=== PATIENT | female | born 1950 | race Two or more races ===

== ENCOUNTER 2019-12-15 12:04 | Outpatient (CLI) | payer SELFPAY ==
[2019-12-15] MEDS ORDERED: LIDOCAINE SOLN 4% 50 ML BOTTLE ONE (12:38)
== END 2019-12-15 23:59 | disposition home or self-care (01) ==
LOC: WOU 12:04
PROVIDERS: ATTEND Surgery
DX: T81.31XA Disruption of external operation (surgical) wound, not elsewhere classified, initial encounter (principal); Z96.641 Presence of right artificial hip joint; I10 Essential (primary) hypertension; Z90.710 Acquired absence of both cervix and uterus; R73.03 Prediabetes; Z79.84 Long term (current) use of oral hypoglycemic drugs
CPT/HCPCS: 11043

== ENCOUNTER 2019-12-22 11:00 | Outpatient (CLI) | payer SELFPAY | END 2019-12-22 23:59 | disposition home or self-care (01) | LOC: WOU 11:00 | PROVIDERS: ATTEND Surgery | DX: T81.31XA Disruption of external operation (surgical) wound, not elsewhere classified, initial encounter (principal); I10 Essential (primary) hypertension; Z96.641 Presence of right artificial hip joint; Z79.84 Long term (current) use of oral hypoglycemic drugs | CPT/HCPCS: 11043 ==

== ENCOUNTER 2019-12-29 11:52 | Outpatient (CLI) | payer SELFPAY | END 2019-12-29 23:59 | disposition home or self-care (01) | LOC: WOU 11:52 | PROVIDERS: ATTEND Surgery | DX: T81.31XA Disruption of external operation (surgical) wound, not elsewhere classified, initial encounter (principal); I10 Essential (primary) hypertension; Z96.641 Presence of right artificial hip joint; R73.03 Prediabetes; Z79.84 Long term (current) use of oral hypoglycemic drugs | CPT/HCPCS: 11043 ==

== ENCOUNTER 2020-01-05 11:17 | Outpatient (CLI) | payer OTHER | END 2020-01-05 23:59 | disposition home or self-care (01) | LOC: WOU 11:17 | PROVIDERS: ATTEND Surgery | DX: T81.31XA Disruption of external operation (surgical) wound, not elsewhere classified, initial encounter (principal); Z96.641 Presence of right artificial hip joint; E78.5 Hyperlipidemia, unspecified; I10 Essential (primary) hypertension; R73.03 Prediabetes; Z79.84 Long term (current) use of oral hypoglycemic drugs | CPT/HCPCS: 11043 ==

== ENCOUNTER 2020-01-12 11:30 | Outpatient (CLI) | payer OTHER ==
[2020-01-12] MEDS ORDERED: LIDOCAINE SOLN 4% 50 ML BOTTLE ONE (11:42)
== END 2020-01-12 23:59 | disposition home or self-care (01) ==
LOC: WOU 11:30
PROVIDERS: ATTEND Surgery
DX: T81.31XA Disruption of external operation (surgical) wound, not elsewhere classified, initial encounter (principal); Z96.641 Presence of right artificial hip joint; I10 Essential (primary) hypertension; R73.03 Prediabetes; Z79.84 Long term (current) use of oral hypoglycemic drugs
CPT/HCPCS: 11043

== ENCOUNTER 2020-01-19 11:25 | Outpatient (CLI) | payer OTHER | END 2020-01-19 23:59 | disposition home or self-care (01) | LOC: WOU 11:25 | PROVIDERS: ATTEND Surgery | DX: T81.31XA Disruption of external operation (surgical) wound, not elsewhere classified, initial encounter (principal); Z96.641 Presence of right artificial hip joint; R73.03 Prediabetes; Z79.84 Long term (current) use of oral hypoglycemic drugs; I10 Essential (primary) hypertension | CPT/HCPCS: 11043; A6407 ==

== ENCOUNTER 2020-01-26 11:20 | Outpatient (CLI) | payer OTHER ==
[2020-01-26] MEDS ORDERED: LIDOCAINE 2% JEL 5 ML TUBE ONE (11:59)
== END 2020-01-26 23:59 | disposition home or self-care (01) ==
LOC: WOU 11:20
PROVIDERS: ATTEND Surgery
DX: T81.31XA Disruption of external operation (surgical) wound, not elsewhere classified, initial encounter (principal); Z96.641 Presence of right artificial hip joint; I10 Essential (primary) hypertension; R73.03 Prediabetes; Z79.84 Long term (current) use of oral hypoglycemic drugs
CPT/HCPCS: 11043; A6407

== ENCOUNTER 2020-02-02 11:00 | Outpatient (CLI) | payer OTHER | END 2020-02-02 23:59 | disposition home or self-care (01) | LOC: WOU 11:00 | PROVIDERS: ATTEND Surgery | DX: T81.31XA Disruption of external operation (surgical) wound, not elsewhere classified, initial encounter (principal); R73.03 Prediabetes; Z79.84 Long term (current) use of oral hypoglycemic drugs; Z96.641 Presence of right artificial hip joint | CPT/HCPCS: 11043; A6407 ==

== ENCOUNTER 2020-02-09 11:00 | Outpatient (CLI) | payer OTHER ==
[2020-02-09] MEDS ORDERED: LIDOCAINE SOLN 4% 50 ML BOTTLE ONE (11:11)
== END 2020-02-09 23:59 | disposition home or self-care (01) ==
LOC: WOU 11:00
PROVIDERS: ATTEND Surgery
DX: T81.31XA Disruption of external operation (surgical) wound, not elsewhere classified, initial encounter (principal); Z96.641 Presence of right artificial hip joint; I10 Essential (primary) hypertension; R73.03 Prediabetes; Z79.84 Long term (current) use of oral hypoglycemic drugs
CPT/HCPCS: 11042; A6407; 11043

== ENCOUNTER 2020-03-01 11:00 | Outpatient (CLI) | payer OTHER | END 2020-03-01 23:59 | disposition home or self-care (01) | LOC: WOU 11:00 | PROVIDERS: ATTEND Surgery | DX: T81.31XD Disruption of external operation (surgical) wound, not elsewhere classified, subsequent encounter (principal); Z96.641 Presence of right artificial hip joint; I10 Essential (primary) hypertension; R73.03 Prediabetes; Z79.84 Long term (current) use of oral hypoglycemic drugs | CPT/HCPCS: G0463 ==